=== PATIENT | female | born 1980 | race Caucasian/White ===

== ENCOUNTER 2022-09-05 17:30 | Emergency (ER) | payer OTHER ==
[~2022-09-05] VITALS: Ht 170.2 cm; Wt 65.8 kg
== END 2022-09-05 20:36 | disposition home or self-care (01) ==
LOC: ER 17:30
DX: S09.90XA Unspecified injury of head, initial encounter (principal); V19.9XXA Pedal cyclist (driver) (passenger) injured in unspecified traffic accident, initial encounter; Y93.55 Activity, bike riding; Y92.9 Unspecified place or not applicable; Y99.9 Unspecified external cause status